=== PATIENT | female | born 1985 | race American Indian/Alaskan Native ===

== ENCOUNTER 2016-08-02 11:01 | Emergency (ER) | payer MEDICAID, OTHER ==
[2016-08-02] MEDS ORDERED: NACL 0.9% 1000 ML 1,000 ML IV ONE (14:50)
[2016-08-02] MEDS ORDERED: BENADRYL IV ONE (14:50)
[2016-08-02] MEDS ORDERED: REGLAN IV ONE (14:50)
--- NOTE | 2016-08-02 15:11 | Emergency Department Report ---
ED Headache HPI - General Chief Complaint: Headache Stated Complaint: HEADACHE X 3 DAYS Time Seen by Provider: 08/02/16 14:40 Source: patient, RN notes reviewed, old records Exam Limitations: no limitations - History of Present Illness Initial Comments: PT states she has hx of migraines since high school. PT states she started getting a headache 3 days ago, while at work, and states now it is migraine. No significant improvement with Tramadol. PT states today she has thrown up 4 times. PT states she has not eaten due to nausea so she had nothing to throw up. PT states her entire head now hurts and this feels like previous migraines. PT states she has finished her Coumadin and is currently not on any anticoagulation medication. PT states she had a PE last dec and the doctors do not know what caused it. Upon chart review, it appears pt had a tubal ligation the month prior. PT had normal MRI/MRA of head 04-04-16. Timing/Duration: constant (for three days) Quality: severe, constant, pressure, throbbing Head Injury Location: frontal, temporal, occipital, parietal Recent Head Trauma: no recent headache/trauma, frequent headaches Modifying Factors: improves with: medication. worse with: exposure to light Associated Symptoms: nausea/vomiting, vision changes (hurts to look at light). denies: facial pain, loss of consciousness, numbness in legs/feet, stiff neck Allergies/Adverse Reactions: Allergies No Known Allergies Allergy (Verified 08/02/16 12:20) Home Medications: Ambulatory Orders ALBUTEROL Inhaler [ProAir HFA Inhaler] 2 puff IH QID PRN 04/09/15 Famotidine [Pepcid] 20 mg PO BID #60 tablet 04/11/15 Polyethylene Glycol 3350 [Miralax 3350] 17 gm PO DAILY PRN #10 powd.pack Simvastatin [Zocor TAB] 20 mg PO QHS #30 tablet 04/11/15 Topiramate [Topamax] 50 mg PO Q12HR #60 tablet 04/11/15 ED Review of Systems ROS: Stated complaint: HEADACHE X 3 DAYS Other details as noted in HPI Comment: All other systems reviewed and negative Constitutional: denies: chills, fever Eyes: eye pain (photophobia ). denies: eye discharge Cardiovascular: denies: chest pain Gastrointestinal: abdominal pain (feels sore from vomiting ), nausea, vomiting Genitourinary: denies: dysuria Musculoskeletal: denies: back pain Neurological: headache. denies: weakness, numbness, paresthesias ED Past Medical Hx - Past Medical History Hx Hypertension: No Hx Heart Attack/AMI: No Hx Congestive Heart Failure: No Hx Diabetes: No Hx Pulmonary Embolism: Yes Hx Liver Disease: No Hx Renal Disease: No Hx Headaches / Migraines: Yes (migraines) Hx Seizures: No Hx Asthma: Yes Hx COPD: No Hx HIV: No - Surgical History Additional Surgical History: Polyps removed from rectal area. TUBAL LIGATION - Social History Smoking Status: Light Tobacco Smoker Substance Use Type: Alcohol, Marijuana - Medications Home Medications: Home Medications Medication Instructions Recorded Confirmed Last Taken Type ALBUTEROL Inhaler [ProAir HFA 2 puff IH QID PRN 04/09/15 04/09/15 11/11/14 History Inhaler] Famotidine [Pepcid] 20 mg PO BID #60 tablet 04/11/15 Unknown Rx Polyethylene Glycol 3350 [Miralax 17 gm PO DAILY PRN #10 powd.pack 04/11/15 Unknown Rx 3350] Simvastatin [Zocor TAB] 20 mg PO QHS #30 tablet 04/11/15 Unknown Rx Topiramate [Topamax] 50 mg PO Q12HR #60 tablet 04/11/15 Unknown Rx ED Physical Exam - General Limitations: No Limitations General appearance: alert, obese, other (laying still in dark room, with eyes cover, alert to verbal stimulation ) - Head Head exam: Present: atraumatic, normocephalic - Eye Eye exam: Present: normal appearance, PERRL, EOMI, other (photophobia ). Absent : conjunctival injection, nystagmus - ENT ENT exam: Present: normal exam, normal orophraynx, mucous membranes moist, normal external ear exam - Neck Neck exam: Present: normal inspection. Absent: tenderness - Respiratory Respiratory exam: Present: normal lung sounds bilaterally. Absent: respiratory distress - Cardiovascular Cardiovascular Exam: Present: regular rate, normal rhythm, normal heart sounds - GI/Abdominal GI/Abdominal exam: Present: soft, normal bowel sounds. Absent: tenderness - Extremities Exam Extremities exam: Present: normal inspection, full ROM. Absent: tenderness, pedal edema, calf tenderness - Back Exam Back exam: Present: normal inspection, full ROM. Absent: tenderness, CVA tenderness (R), CVA tenderness (L), paraspinal tenderness, vertebral tenderness - Neurological Exam Neurological exam: Present: alert, oriented X3, CN II-XII intact - Expanded Neurological Exam Expanded Patient oriented to: Present: person, place, time Speech: Present: fluid speech Sensory exam: Upper Extremity Light Touch: Normal, Lower Extremity Light Touch: Normal Motor strength exam: RUE: 5, LUE: 5, RLE: 5, LLE: 5 Best Eye Response (Proctor): (4) open spontaneously Best Motor Response (Vicike): (6) obeys commands Best Verbal Response (Vickie): (5) oriented Proctor Total: 15 - Psychiatric Psychiatric exam: Present: normal affect, normal mood - Skin Skin exam: Present: warm, dry, intact, normal color ED Course Vital Signs 08/02/16 08/02/16 12:15 15:51 Temperature 98.2 F 98.7 F Pulse Rate 65 65 Respiratory 17 18 Rate Blood Pressure 131/83 Blood Pressure 126/66 [Left] O2 Sat by Pulse 99 100 Oximetry - Reevaluation(s) Reevaluation #1: 08/02/16 15:21 PT aware of plan of care. PT has no questions at this time. Reevaluation #2: 08/02/16 15:49 PT rates pain 9/10. IVFs infusing Reevaluation #3: 08/02/16 16:37 PT states her headache has "gone away" - Pulse Oximetry Interpretation Digit-Finger Initial Pulse Oximetry Readin Actions Taken: none ED Medical Decision Making - Differential Diagnosis headache, migraine Critical Care Time: No Critical care attestation.: If time is entered above; I have spent that time in minutes in the direct care of this critically ill patient, excluding procedure time. ED Disposition Clinical Impression: Nausea Headache Qualifiers: Headache type: unspecified Headache chronicity pattern: acute headache Intractability: not intractable Qualified Code(s): R51 - Headache Disposition: DISCHARGED TO HOME OR SELFCARE Is pt being admited?: No Does the pt Need Aspirin: No Condition: Stable Instructions: Migraine Headache (ED), Acute Headache (ED) Referrals: ADRIANA BAIN MD [Primary Care Provider] - 3-5 Days Forms: Work/School Release Form(ED) Time of Disposition: 16:38
[2016-08-02] MEDS ORDERED: TORADOL IV ONE (15:49)
[2016-08-02 15:51] VITALS: BP 126/66
== END 2016-08-02 16:55 | disposition home or self-care (01) ==
LOC: ED 11:01
DX: G43.909 Migraine, unspecified, not intractable, without status migrainosus (principal); R11.0 Nausea; F12.90 Cannabis use, unspecified, uncomplicated; Z86.711 Personal history of pulmonary embolism; Z72.0 Tobacco use
CPT/HCPCS: 96361; 96374; 96375; 99282; J1200; J1885; J2765; J2930; J7030

== ENCOUNTER 2017-03-13 08:05 | Emergency (ER) | payer OTHER ==
[2017-03-13 09:57] LABS: Basophils % (Auto) 0.4 % (0.0-1.8); Eosinophils % (Auto) 1.7 % (0.0-4.3); Hematocrit 37.7 % (30.3-42.9); Hemoglobin 12.4 gm/dl (10.1-14.3); Mean Corpuscular HGB Conc 33 % (30-34); Mean Corpuscular Hemoglobin 26 pg (28-32); Mean Corpuscular Volume 80 fl (79-97); Platelet Count 346 K/mm3 (140-440); Red Blood Count 4.72 M/mm3 (3.65-5.03); Red Cell Distribution Width 14.2 % (13.2-15.2); White Blood Count 8.4 K/mm3 (4.5-11.0)
[2017-03-13 10:20] LABS: Alanine Aminotransferase 19 units/L (7-56); Albumin 3.7 g/dL (3.9-5); Albumin/Globulin Ratio 1.1 %; Alkaline Phosphatase 69 units/L (35-129); Anion Gap 17 mmol/L; BUN/Creatinine Ratio 12; Blood Urea Nitrogen 7 mg/dL (7-17); Calcium 8.5 mg/dL (8.4-10.2); Carbon Dioxide 21 mmol/L (22-30); Chloride 107.3 mmol/L (98-107); Glucose 94 mg/dL (65-100); Lipase 34 units/L (13-60); Sodium 141 mmol/L (137-145)
[2017-03-13 12:20] VITALS: BP 122/84
[2017-03-13] MEDS ORDERED: ZOFRAN ODT PO ONE (12:26)
--- NOTE | 2017-03-13 12:33 | Emergency Department Report ---
HPI - General Chief Complaint: Abdominal Pain Time Seen by Provider: 03/13/17 12:16 - HPI HPI: Room 2 ( 1 of 2) The patient is a 31-year-old female with a chief complaint of abdominal pain nausea vomiting diarrhea. The patient states her symptoms began 7 days ago with diffuse abdominal pain. The patient states 3 days ago she developed nausea and vomiting and then yesterday she developed diarrhea. Patient denies any history of fever. The patient states her abdomen feels though there is a "knot" inside it. Of note the patient presents with her younger son who has since developed nausea and vomiting. The patient states she has a headache that feels like her previous migraines but denies any other types of pain Location: Abdomen, head Duration: [See above] Quality: "Knot" Severity: Moderate Modifying factors: [see above] Context: [see above] Mode of transportation: Patient drove herself to the emergency department ED Past Medical Hx - Past Medical History Hx Pulmonary Embolism: Yes Hx Headaches / Migraines: Yes (migraines) Hx Asthma: Yes - Surgical History Additional Surgical History: Polyps removed from rectal area. TUBAL LIGATION - Family History Family history: no significant - Social History Smoking Status: Never Smoker Substance Use Type: None - Medications Home Medications: Home Medications Medication Instructions Recorded Confirmed Last Taken Type ALBUTEROL Inhaler [ProAir HFA 2 puff IH QID PRN 04/09/15 04/09/15 11/11/14 History Inhaler] Famotidine [Pepcid] 20 mg PO BID #60 tablet 04/11/15 Unknown Rx Polyethylene Glycol 3350 [Miralax 17 gm PO DAILY PRN #10 powd.pack 04/11/15 Unknown Rx 3350] Simvastatin [Zocor TAB] 20 mg PO QHS #30 tablet 04/11/15 Unknown Rx Topiramate [Topamax] 50 mg PO Q12HR #60 tablet 04/11/15 Unknown Rx Butalb/Acetamin/Caff 50-325-40 1 tab PO Q6HR PRN #12 tab 08/02/16 Unknown Rx [Fioricet] Ondansetron [Zofran ODT TAB] 4 mg PO Q8HR PRN #10 tab.rapdis 08/02/16 Unknown Rx Ciprofloxacin HCl [Ciprofloxacin 500 mg PO BID #3 day 10/06/16 Unknown Rx TAB] methylPREDNISolone [Medrol Dose 1 dose PO DAILY #1 pack 10/06/16 Unknown Rx Jakob] Ondansetron [Zofran ODT TAB] 8 mg PO Q8HR #20 tab.rapdis 03/13/17 Unknown Rx Promethazine [Phenergan] 25 mg NE Q6HR PRN #5 supp.rect 03/13/17 Unknown Rx traMADol [Ultram] 50 mg PO Q6HR PRN #14 tablet 03/13/17 Unknown Rx ED Review of Systems ROS: Stated complaint: ABDOMINAL PAIN, VOMITING, AND DIARRHEA Other details as noted in HPI Constitutional: denies: fever Eyes: denies: eye pain ENT: denies: throat pain Cardiovascular: denies: chest pain Gastrointestinal: abdominal pain, nausea, vomiting, diarrhea Genitourinary: denies: urgency Musculoskeletal: denies: back pain Neurological: headache Physical Exam - Physical Exam Vital Signs: Vital Signs 03/13/17 03/13/17 03/13/17 09:27 12:19 12:20 Temperature 98.9 F 98.4 F Pulse Rate 76 77 Respiratory 18 16 16 Rate Blood Pressure 130/79 Blood Pressure 122/84 [Left] O2 Sat by Pulse 98 100 100 Oximetry Physical Exam: GENERAL: The patient is well-developed well-nourished female lying on stretcher not appearing to be in acute distress. [] HEENT: Normocephalic. Atraumatic. Extraocular motions are intact. Patient has moist mucous membranes. NECK: Supple. Trachea midline CHEST/LUNGS: Clear to auscultation. There is no respiratory distress noted. HEART/CARDIOVASCULAR: Regular. There is no tachycardia. There is no gallop rub or murmur. ABDOMEN: Abdomen is soft, with diffuse discomfort to palpation but no rebound or guarding. Patient has normal bowel sounds. There is no abdominal distention. SKIN: There is no rash. There is no edema. There is no diaphoresis. NEURO: The patient is awake, alert, and oriented. The patient is cooperative. The patient has normal speech MUSCULOSKELETAL: There is no evidence of acute injury. ED Course Vital Signs 03/13/17 03/13/17 03/13/17 09:27 12:19 12:20 Temperature 98.9 F 98.4 F Pulse Rate 76 77 Respiratory 18 16 16 Rate Blood Pressure 130/79 Blood Pressure 122/84 [Left] O2 Sat by Pulse 98 100 100 Oximetry - Reevaluation(s) Reevaluation #1: 03/13/17 13:31 Patient tolerating po ED Medical Decision Making - Lab Data Result diagrams: 03/13/17 09:35 03/13/17 09:35 Laboratory Tests 03/13/17 03/13/17 03/13/17 09:35 09:35 09:35 WBC 8.4 RBC 4.72 Hgb 12.4 Hct 37.7 MCV 80 MCH 26 L MCHC 33 RDW 14.2 Plt Count 346 Lymph % (Auto) 24.6 Christian % (Auto) 7.1 Eos % (Auto) 1.7 Baso % (Auto) 0.4 Lymph # 2.1 Christian # 0.6 Eos # 0.1 Baso # 0.0 Seg Neutrophils % 66.2 Seg Neutrophils # 5.6 Sodium 141 Potassium 4.0 Chloride 107.3 H Carbon Dioxide 21 L Anion Gap 17 BUN 7 Creatinine 0.6 L Estimated GFR > 60 BUN/Creatinine Ratio 12 Glucose 94 Calcium 8.5 Total Bilirubin 0.30 AST 20 ALT 19 Alkaline Phosphatase 69 Total Protein 7.0 Albumin 3.7 L Albumin/Globulin Ratio 1.1 Lipase 34 HCG, Qual Negative - Differential Diagnosis gastroenteritis, gastritis Critical care attestation.: If time is entered above; I have spent that time in minutes in the direct care of this critically ill patient, excluding procedure time. ED Disposition Clinical Impression: Gastroenteritis, acute, Acute abdominal pain Disposition: - TO HOME OR SELFCARE Is pt being admited?: No Does the pt Need Aspirin: No Condition: Stable Instructions: Gastroenteritis (ED), Abdominal Pain (ED) Additional Instructions: Return to the emergency department immediately should you develop worsening symptoms, fever, inability to tolerate food or liquid or any other concerns. 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 Please follow-up with him for further evaluation) Time of Disposition: 13:31
== END 2017-03-13 13:45 | disposition home or self-care (01) ==
LOC: ED 08:05
DX: K52.9 Noninfective gastroenteritis and colitis, unspecified (principal); G43.909 Migraine, unspecified, not intractable, without status migrainosus
CPT/HCPCS: 36415; 80053; 83690; 84703; 85025; 99283; Q0162

== ENCOUNTER 2017-03-14 18:15 | Emergency (ER) | payer OTHER ==
[2017-03-14 18:53] LABS: Basophils % (Auto) 0.3 % (0.0-1.8); Eosinophils % (Auto) 2.1 % (0.0-4.3); Hematocrit 37.8 % (30.3-42.9); Hemoglobin 12.3 gm/dl (10.1-14.3); Mean Corpuscular HGB Conc 33 % (30-34); Mean Corpuscular Hemoglobin 26 pg (28-32); Mean Corpuscular Volume 81 fl (79-97); Platelet Count 360 K/mm3 (140-440); Red Blood Count 4.68 M/mm3 (3.65-5.03); Red Cell Distribution Width 14.5 % (13.2-15.2); White Blood Count 8.3 K/mm3 (4.5-11.0)
[2017-03-14 19:05] LABS: Anion Gap 19 mmol/L; BUN/Creatinine Ratio 9; Blood Urea Nitrogen 6 mg/dL (7-17); Calcium 9.4 mg/dL (8.4-10.2); Carbon Dioxide 23 mmol/L (22-30); Glucose 88 mg/dL (65-100); Potassium 4.4 mmol/L (3.6-5.0); Sodium 140 mmol/L (137-145)
[2017-03-14] MEDS ORDERED: MORPHINE IV ONE (21:53)
[2017-03-14] MEDS ORDERED: ZOFRAN IV ONE (21:53)
[2017-03-14] MEDS ORDERED: BENADRYL IV ONE (21:54)
--- NOTE | 2017-03-14 21:59 | Emergency Department Report ---
ED Chest Pain HPI - General Chief Complaint: Chest Pain Stated Complaint: SHARP C/P L SIDE NUMBNESS Time Seen by Provider: 03/14/17 21:46 Source: patient Mode of arrival: Ambulatory Limitations: No Limitations - History of Present Illness Initial Comments: Patient is 31 is all female history of pulmonary embolism last year. Patient presented with sudden onset of left chest pain, sharp in nature ,not radiating associated with shortness of breath. Patient stated that her symptoms is similar to when she had her PE last time. Patient stated that she finished one year off Lovenox. Patient denied any fever or cough. When questioned about her shrimp allergy patient stated that she does not think that she is allergic to shrimp that she it was the spice in the shrimp that cause her to swell. She stated that she had IV contrast last time for for her PE diagnosis. I will premedicate how with Solu-Medrol and Benadryl. Complaint: chest pain -: Sudden Onset: during rest Pain Location: left chest Pain Radiation: none Severity: moderate Severity scale (0 -10): 6 Quality: sharp Consistency: constant - Related Data Home Medications Medication Instructions Recorded Confirmed Last Taken ALBUTEROL Inhaler [ProAir HFA 2 puff IH QID PRN 04/09/15 04/09/15 11/11/14 Inhaler] Previous Rx's Medication Instructions Recorded Last Taken Type Famotidine [Pepcid] 20 mg PO BID #60 tablet 04/11/15 Unknown Rx Polyethylene Glycol 3350 [Miralax 17 gm PO DAILY PRN #10 powd.pack 04/11/15 Unknown Rx 3350] Simvastatin [Zocor TAB] 20 mg PO QHS #30 tablet 04/11/15 Unknown Rx Topiramate [Topamax] 50 mg PO Q12HR #60 tablet 04/11/15 Unknown Rx Butalb/Acetamin/Caff 50-325-40 1 tab PO Q6HR PRN #12 tab 08/02/16 Unknown Rx [Fioricet] Ondansetron [Zofran ODT TAB] 4 mg PO Q8HR PRN #10 tab.rapdis 08/02/16 Unknown Rx Ciprofloxacin HCl [Ciprofloxacin 500 mg PO BID #3 day 10/06/16 Unknown Rx TAB] methylPREDNISolone [Medrol Dose 1 dose PO DAILY #1 pack 10/06/16 Unknown Rx Jakob] Ondansetron [Zofran ODT TAB] 8 mg PO Q8HR #20 tab.rapdis 03/13/17 Unknown Rx Promethazine [Phenergan] 25 mg IN Q6HR PRN #5 supp.rect 03/13/17 Unknown Rx traMADol [Ultram] 50 mg PO Q6HR PRN #14 tablet 03/13/17 Unknown Rx Allergies Allergy/AdvReac Type Severity Reaction Status Date / Time peanut Allergy Swelling Verified 03/14/17 18:18 shrimp Allergy Swelling Verified 03/14/17 18:18 Heart Score - HEART Score History: Slightly suspicious EKG: Normal Age: < 45 Risk factors: 1-2 risk factors Troponin: < normal limit HEART Score: 1 - Critical Actions Critical Actions: 0-3 pts:0.9-1.7%risk of adverse cardiac event.Candidate for discharge ED Review of Systems ROS: Stated complaint: SHARP C/P L SIDE NUMBNESS Other details as noted in HPI Comment: All other systems reviewed and negative Constitutional: denies: chills, fever Respiratory: shortness of breath, SOB at rest. denies: cough, orthopnea, SOB with exertion, wheezing Cardiovascular: chest pain. denies: palpitations, dyspnea on exertion, orthopnea, edema, syncope, paroxysmal nocturnal dyspnea Gastrointestinal: denies: abdominal pain, nausea, vomiting, diarrhea, constipation, hematemesis, melena, hematochezia Musculoskeletal: denies: back pain Neurological: denies: headache, numbness, paresthesias ED Past Medical Hx - Past Medical History Hx Hypertension: No Hx Heart Attack/AMI: No Hx Congestive Heart Failure: No Hx Diabetes: No Hx Pulmonary Embolism: Yes Hx Liver Disease: No Hx Renal Disease: No Hx Headaches / Migraines: Yes (migraines) Hx Seizures: No Hx Asthma: Yes Hx COPD: No Hx HIV: No - Surgical History Additional Surgical History: Polyps removed from rectal area. TUBAL LIGATION - Social History Smoking Status: Never Smoker Substance Use Type: Alcohol - Medications Home Medications: Home Medications Medication Instructions Recorded Confirmed Last Taken Type ALBUTEROL Inhaler [ProAir HFA 2 puff IH QID PRN 04/09/15 04/09/15 11/11/14 History Inhaler] Famotidine [Pepcid] 20 mg PO BID #60 tablet 04/11/15 Unknown Rx Polyethylene Glycol 3350 [Miralax 17 gm PO DAILY PRN #10 powd.pack 04/11/15 Unknown Rx 3350] Simvastatin [Zocor TAB] 20 mg PO QHS #30 tablet 04/11/15 Unknown Rx Topiramate [Topamax] 50 mg PO Q12HR #60 tablet 04/11/15 Unknown Rx Butalb/Acetamin/Caff 50-325-40 1 tab PO Q6HR PRN #12 tab 08/02/16 Unknown Rx [Fioricet] Ondansetron [Zofran ODT TAB] 4 mg PO Q8HR PRN #10 tab.rapdis 08/02/16 Unknown Rx Ciprofloxacin HCl [Ciprofloxacin 500 mg PO BID #3 day 10/06/16 Unknown Rx TAB] methylPREDNISolone [Medrol Dose 1 dose PO DAILY #1 pack 10/06/16 Unknown Rx Jakob] Ondansetron [Zofran ODT TAB] 8 mg PO Q8HR #20 tab.rapdis 03/13/17 Unknown Rx Promethazine [Phenergan] 25 mg IN Q6HR PRN #5 supp.rect 03/13/17 Unknown Rx traMADol [Ultram] 50 mg PO Q6HR PRN #14 tablet 03/13/17 Unknown Rx ED Physical Exam - General Limitations: No Limitations General appearance: alert, in no apparent distress - Head Head exam: Present: atraumatic, normocephalic - Eye Eye exam: Present: normal appearance Pupils: Present: normal accommodation - ENT ENT exam: Present: normal exam, normal orophraynx, mucous membranes moist - Neck Neck exam: Present: normal inspection, full ROM. Absent: tenderness, meningismus, lymphadenopathy, thyromegaly - Respiratory Respiratory exam: Present: normal lung sounds bilaterally. Absent: respiratory distress, wheezes, rales, rhonchi, chest wall tenderness - Cardiovascular Cardiovascular Exam: Present: regular rate, normal rhythm, normal heart sounds - GI/Abdominal GI/Abdominal exam: Present: soft, normal bowel sounds. Absent: distended, tenderness, guarding, rebound, rigid, organomegaly, mass, bruit, pulsatile mass , hernia - Extremities Exam Extremities exam: Present: normal inspection, full ROM, normal capillary refill. Absent: calf tenderness - Back Exam Back exam: Present: normal inspection. Absent: CVA tenderness (R), CVA tenderness (L) - Neurological Exam Neurological exam: Present: alert, oriented X3, CN II-XII intact, normal gait - Skin Skin exam: Present: warm, intact, normal color. Absent: cyanosis ED Course Vital Signs 03/14/17 03/14/17 18:19 22:24 Temperature 98.2 F Pulse Rate 68 Respiratory 18 20 Rate Blood Pressure 124/81 O2 Sat by Pulse 98 Oximetry - Reevaluation(s) Reevaluation #1: 03/14/17 23:54 Patient remained stable in the ER no acute distress. DANIEL score - Daniel Score Age > 65: (0) No Aspirin use within the Past 7 Days: (0) No 3 or more CAD Risk Factors: (0) No 2 or more Angina events in past 24 hrs: (0) No Known CAD with more than 50% Stenosis: (0) No Elevated Cardiac Markers: (0) No ST Deviation Greater than 0.5mm: (0) No DANIEL Score: 0 ED Medical Decision Making - Lab Data Result diagrams: 03/14/17 18:35 03/14/17 18:35 - EKG Data -: EKG Interpreted by [place] EKG shows normal: sinus rhythm Rate: normal - EKG Data Interpretation: no acute changes - Radiology Data Radiology results: report reviewed Chest CTA showed no evidence of pulmonary embolism. Critical care attestation.: If time is entered above; I have spent that time in minutes in the direct care of this critically ill patient, excluding procedure time. ED Disposition Clinical Impression: Chest pain Disposition: DC-01 TO HOME OR SELFCARE Is pt being admited?: No Condition: Stable Instructions: Chest Pain (ED) Referrals: PRIMARY CARE, [Primary Care Provider] - 3-5 Days
[2017-03-14] MEDS ORDERED: NACL ONE (22:06)
[2017-03-14 22:37] LABS: INR 0.86 (0.87-1.13)
--- NOTE | 2017-03-14 23:31 | Cat Scan Report ---
FINAL REPORT PROCEDURE: CT ANGIO CHEST TECHNIQUE: Computerized tomographic angiography of the chest was performed during the IV injection of iodinated nonionic contrast including image processing. The image data was postprocessed using 2-dimensional multiplanar reformatted (MPR) and 3-dimensional (MIP and/or volume rendered) techniques. HISTORY: Chest pain with short of breath. History of pulmonary embolus. Evaluate pulmonary embolus. COMPARISON: No prior studies are available for comparison. FINDINGS: Pulmonary outflow tract, right and left main pulmonary arteries and their proximal branches: Clear, no filling defects seen to suggest pulmonary embolus. Pericardium: No evidence of pericardial effusion. Thoracic aorta: No evidence of aneurysmal dilatation or dissection. Coronary arteries: Are partially calcified indicating atherosclerotic disease. Mediastinum and hilar regions: Nonspecific subcentimeter lymph nodes are visualized. No pathologically enlarged lymph nodes or masses are identified. Lung Smith: There is minimal dependent atelectasis. The lungs otherwise are clear. Upper abdomen: No acute or focal abnormality is seeen. Other: No acute bony abnormalities are identified. IMPRESSION: No evidence of pulmonary embolus. Minimal dependent atelectasis visualized. Lungs otherwise are clear. No other abnormalities are seen.
[2017-03-15 00:33] VITALS: BP 114/65
== END 2017-03-15 00:34 | disposition home or self-care (01) ==
LOC: ED 18:15
DX: R06.02 Shortness of breath (principal); R07.9 Chest pain, unspecified; G43.909 Migraine, unspecified, not intractable, without status migrainosus
CPT/HCPCS: 36415; 71275; 80048; 84484; 85025; 85610; 85730; 93005; 93010; 96374; 96375; 99284; J1200; J2270; J2405; J2930; Q9967

== ENCOUNTER 2017-07-03 21:19 | Emergency (ER) | payer OTHER | END 2017-07-03 22:00 | disposition left against medical advice (07) | LOC: ED 21:19 | DX: M25.571 Pain in right ankle and joints of right foot (principal); Z53.21 Procedure and treatment not carried out due to patient leaving prior to being seen by health care provider ==

== ENCOUNTER 2018-12-07 08:10 | Emergency (ER) | payer OTHER ==
[2018-12-07 08:17] VITALS: BP 121/61
[2018-12-07 09:02] LABS: Basophils % (Auto) 0.5 % (0.0-1.8); Eosinophils # (Auto) 0.2 K/mm3 (0.0-0.4); Eosinophils % (Auto) 2.5 % (0.0-4.3); Hematocrit 35.6 % (30.3-42.9); Hemoglobin 11.5 gm/dl (10.1-14.3); Lymphocytes # (Auto) 2.1 K/mm3 (1.2-5.4); Mean Corpuscular HGB Conc 32 % (30-34); Mean Corpuscular Volume 77 fl (79-97); Monocytes # (Auto) 0.4 K/mm3 (0.0-0.8); Monocytes % (Auto) 6.9 % (0.0-7.3); Platelet Count 362 K/mm3 (140-440); Red Blood Count 4.63 M/mm3 (3.65-5.03); Red Cell Distribution Width 16.4 % (13.2-15.2)
[2018-12-07 09:26] LABS: Alanine Aminotransferase 20 units/L (7-56); Albumin 3.9 g/dL (3.9-5); BUN/Creatinine Ratio 9; Blood Urea Nitrogen 7 mg/dL (7-17); Calcium 9.4 mg/dL (8.4-10.2); Hemolysis Index 1
[2018-12-07 09:59] LABS: Bacteria,Urine 1+ /HPF (Negative); Bilirubin,Urine NEG (Negative); Blood,Urine LG (Negative); Color,Urine Yellow (Yellow); Mucus,Urine 2+ /HPF; Protein,Urine <15 mg/dL mg/dL (Negative)
[2018-12-07] MEDS ORDERED: DECADRON IV ONE (10:47)
[2018-12-07] MEDS ORDERED: REGLAN IV ONE (10:47)
[2018-12-07] MEDS ORDERED: TORADOL IV ONE (10:47)
[2018-12-07] MEDS ORDERED: BENADRYL IV ONE (10:47)
[2018-12-07] MEDS ORDERED: NACL 0.9% 1000 ML 1,000 ML IV ONE (10:47)
[2018-12-07 11:24] LABS: HCG Qualitative,Urine Negative (Negative)
--- NOTE | 2018-12-07 11:25 | Emergency Department Report ---
ED Abdominal Pain HPI - General Chief Complaint: Abdominal Pain Stated Complaint: BELLY BUTTON PAIN/NAUSEA Time Seen by Provider: 12/07/18 10:42 Source: patient Mode of arrival: Ambulatory Limitations: No Limitations - History of Present Illness Initial Comments: abd pain, vomiting x 2 weeks states pain in belly button area also c/o migraine, hx same, same sx Complaint: abdominal pain -: Gradual, week(s) (2) Location: periumbilical Radiation: none Migration to: no migration Severity: moderate Severity scale (0 -10): 5 Quality: aching Consistency: constant Improves With: nothing Worsens With: nothing - Related Data Home Medications Medication Instructions Recorded Confirmed Last Taken ALBUTEROL Inhaler (OR & NICU) 2 puff IH QID PRN 04/09/15 04/09/15 11/11/14 [ProAir HFA Inhaler] Previous Rx's Medication Instructions Recorded Last Taken Type Famotidine [Pepcid] 20 mg PO BID #60 tablet 04/11/15 Unknown Rx Polyethylene Glycol 3350 [Miralax 17 gm PO DAILY PRN #10 powd.pack 04/11/15 Unk nown Rx 3350] Simvastatin (Nf) [Zocor TAB] 20 mg PO QHS #30 tablet 04/11/15 Unknown Rx Topiramate [Topamax] 50 mg PO Q12HR #60 tablet 04/11/15 Unknown Rx Butalb/Acetamin/Caff 50-325-40 1 tab PO Q6HR PRN #12 tab 08/02/16 Unknown Rx [Fioricet 50-325-40] Ondansetron [Zofran ODT TAB] 4 mg PO Q8HR PRN #10 tab.rapdis 08/02/16 Unknown Rx Ciprofloxacin HCl [Ciprofloxacin 500 mg PO BID #3 day 10/06/16 Unknown Rx TAB] methylPREDNISolone [Medrol Dose 1 dose PO DAILY #1 pack 10/06/16 Unknown Rx Jakob] Ondansetron [Zofran ODT TAB] 8 mg PO Q8HR #20 tab.rapdis 03/13/17 Unknown Rx Promethazine [Phenergan] 25 mg FL Q6HR PRN #5 supp.rect 03/13/17 Unknown Rx traMADol [Ultram] 50 mg PO Q6HR PRN #14 tablet 03/13/17 Unknown Rx Ketorolac [Toradol] 10 mg PO Q6H PRN #20 tablet 03/14/17 Unknown Rx HYDROcodone/ACETAMINOPHEN [[place]ray 1 each PO Q8H PRN #7 tablet 03/27/18 Unknown Rx 5-325 Tablet] cefUROXime [Ceftin] 250 mg PO Q12H #14 tablet 03/27/18 Unknown Rx Hyoscyamine Subl [Levsin Sl 0.125 0.125 mg SL Q6HR PRN #12 tab 12/07/18 Unknown Rx TAB] Promethazine [Phenergan] 25 mg PO Q6HR PRN #12 tab 12/07/18 Unknown Rx cephALEXin [Keflex] 500 mg PO Q12HR #14 cap 12/07/18 Unknown Rx traMADol [Ultram 50 MG tab] 50 mg PO Q6HR PRN #12 tablet 12/07/18 Unknown Rx Allergies Allergy/AdvReac Type Severity Reaction Status Date / Time peanut Allergy Swelling Verified 03/14/17 18:18 shrimp Allergy Swelling Verified 03/14/17 18:18 ED Review of Systems ROS: Stated complaint: BELLY BUTTON PAIN/NAUSEA Other details as noted in HPI Comment: All other systems reviewed and negative Gastrointestinal: as per HPI Neurological: as per HPI ED Past Medical Hx - Past Medical History Previous Medical History?: Yes Hx Hypertension: No Hx Heart Attack/AMI: No Hx Congestive Heart Failure: No Hx Diabetes: No Hx Pulmonary Embolism: Yes Hx Liver Disease: No Hx Renal Disease: No Hx Headaches / Migraines: Yes (migraines) Hx Seizures: No Hx Asthma: Yes Hx COPD: No Hx HIV: No Additional medical history: Obesity - Surgical History Past Surgical History?: Yes Additional Surgical History: Polyps removed from rectal area. TUBAL LIGATION - Social History Smoking Status: Never Smoker Substance Use Type: Alcohol - Medications Home Medications: Home Medications Medication Instructions Recorded Confirmed Last Taken Type ALBUTEROL Inhaler (OR & NICU) 2 puff IH QID PRN 04/09/15 04/09/15 11/11/14 History [ProAir HFA Inhaler] Famotidine [Pepcid] 20 mg PO BID #60 tablet 04/11/15 Unknown Rx Polyethylene Glycol 3350 [Miralax 17 gm PO DAILY PRN #10 powd.pack 04/11/15 Unknown Rx 3350] Simvastatin (Nf) [Zocor TAB] 20 mg PO QHS #30 tablet 04/11/15 Unknown Rx Topiramate [Topamax] 50 mg PO Q12HR #60 tablet 04/11/15 Unknown Rx Butalb/Acetamin/Caff 50-325-40 1 tab PO Q6HR PRN #12 tab 08/02/16 Unknown Rx [Fioricet 50-325-40] Ondansetron [Zofran ODT TAB] 4 mg PO Q8HR PRN #10 tab.rapdis 08/02/16 Unknown Rx Ciprofloxacin HCl [Ciprofloxacin 500 mg PO BID #3 day 10/06/16 Unknown Rx TAB] methylPREDNISolone [Medrol Dose 1 dose PO DAILY #1 pack 10/06/16 Unknown Rx Jakob] Ondansetron [Zofran ODT TAB] 8 mg PO Q8HR #20 tab.rapdis 03/13/17 Unknown Rx Promethazine [Phenergan] 25 mg FL Q6HR PRN #5 supp.rect 03/13/17 Unknown Rx traMADol [Ultram] 50 mg PO Q6HR PRN #14 tablet 03/13/17 Unknown Rx Ketorolac [Toradol] 10 mg PO Q6H PRN #20 tablet 03/14/17 Unknown Rx HYDROcodone/ACETAMINOPHEN [[place]ray 1 each PO Q8H PRN #7 tablet 03/27/18 Unknown Rx 5-325 Tablet] cefUROXime [Ceftin] 250 mg PO Q12H #14 tablet 03/27/18 Unknown Rx Hyoscyamine Subl [Levsin Sl 0.125 0.125 mg SL Q6HR PRN #12 tab 12/07/18 Unknown Rx TAB] Promethazine [Phenergan] 25 mg PO Q6HR PRN #12 tab 12/07/18 Unknown Rx cephALEXin [Keflex] 500 mg PO Q12HR #14 cap 12/07/18 Unknown Rx traMADol [Ultram 50 MG tab] 50 mg PO Q6HR PRN #12 tablet 12/07/18 Unknown Rx ED Physical Exam - General Limitations: No Limitations General appearance: alert, in no apparent distress - Head Head exam: Present: atraumatic, normocephalic - Eye Eye exam: Present: normal appearance, PERRL, EOMI - ENT ENT exam: Present: normal exam, normal orophraynx, mucous membranes moist - Neck Neck exam: Present: normal inspection - Respiratory Respiratory exam: Present: normal lung sounds bilaterally. Absent: respiratory distress - Cardiovascular Cardiovascular Exam: Present: regular rate, normal rhythm. Absent: systolic murmur, diastolic murmur, rubs, gallop - GI/Abdominal GI/Abdominal exam: Present: soft, tenderness (RLQ, periumbilical ), normal bowel sounds. Absent: distended, guarding, rebound, rigid - Extremities Exam Extremities exam: Present: normal inspection - Back Exam Back exam: Present: normal inspection - Neurological Exam Neurological exam: Present: alert, oriented X3, CN II-XII intact, normal gait, reflexes normal. Absent: motor sensory deficit - Psychiatric Psychiatric exam: Present: normal affect, normal mood - Skin Skin exam: Present: warm, dry, intact, normal color. Absent: rash ED Course Vital Signs 12/07/18 08:14 Temperature 98.5 F Pulse Rate 72 Respiratory 18 Rate Blood Pressure 121/61 O2 Sat by Pulse 99 Oximetry ED Medical Decision Making - Lab Data Result diagrams: 12/07/18 08:40 12/07/18 08:40 - Radiology Data Radiology results: report reviewed, image reviewed fat containing umbilical hernia - Medical Decision Making abd pain x 2 weeks, ttp lower abd plan for labs, CT also has migraine, hx same, normal neuro, no concern for serious pathology given IVF, reglan, benadryl, toradol, decadron labs stable UA- UTI CT- fat containing umbilical hernia fu pcp/gen surg - Differential Diagnosis gastritis, uti, appy, migraine Critical care attestation.: If time is entered above; I have spent that time in minutes in the direct care of this critically ill patient, excluding procedure time. ED Disposition Clinical Impression: Umbilical hernia Qualifiers: Obstruction and gangrene presence: without obstruction or gangrene Qualified Code(s): K42.9 - Umbilical hernia without obstruction or gangrene UTI (urinary tract infection) Qualifiers: Urinary tract infection type: acute cystitis Hematuria presence: without hematuria Qualified Code(s): N30.00 - Acute cystitis without hematuria Migraine Qualifiers: Migraine type: unspecified Status migrainosus presence: without status migrainosus Intractability: not intractable Qualified Code(s): G43.909 - Migraine, unspecified, not intractable, without status migrainosus Disposition: - TO HOME OR SELFCARE Is pt being admited?: No Condition: Good Instructions: Abdominal Pain (ED) Prescriptions: cephALEXin [Keflex] 500 mg PO Q12HR #14 cap Hyoscyamine Subl [Levsin Sl 0.125 TAB] 0.125 mg SL Q6HR PRN #12 tab PRN Reason: abdominal pain Promethazine [Phenergan] 25 mg PO Q6HR PRN #12 tab PRN Reason: Nausea traMADol [Ultram 50 MG tab] 50 mg PO Q6HR PRN #12 tablet PRN Reason: Pain Referrals: PRIMARY MD LAITH [Primary Care Provider] - 3-5 Days VLADIMIR MIDDLETON MD [Staff Physician] - 3-5 Days Time of Disposition: 17:49
--- NOTE | 2018-12-07 17:37 | Cat Scan Report ---
CT ABDOMEN AND PELVIS WITHOUT CONTRAST INDICATION / CLINICAL INFORMATION: Diffuse abdominal pain for the past 2 weeks. TECHNIQUE: Axial CT images were obtained through the abdomen and pelvis without IV contrast. All CT scans at [facility] location are performed using CT dose reduction for ALARA by means of automated exposure control. COMPARISON: None available. FINDINGS: LOWER CHEST: No significant abnormality. LIVER: No significant abnormality. GALLBLADDER: No significant abnormality. BILE DUCTS: No significant abnormality. PANCREAS: No significant abnormality. SPLEEN: No significant abnormality. ADRENALS: No significant abnormality. RIGHT KIDNEY and URETER: No significant abnormality. LEFT KIDNEY and URETER: No significant abnormality. STOMACH and SMALL BOWEL: No significant abnormality. COLON: No significant abnormality. APPENDIX: No significant abnormality. PERITONEUM: No free fluid. No free air. No fluid collection. LYMPH NODES: No significant adenopathy. AORTA and ARTERIES: No significant abnormality. IVC and VEINS: No significant abnormality. URINARY BLADDER: No significant abnormality. REPRODUCTIVE ORGANS: No significant abnormality. ADDITIONAL FINDINGS: There is a moderate sized fat-containing periumbilical hernia.. SKELETAL SYSTEM: No significant abnormality. IMPRESSION: No acute intra-abdominal abnormality is identified within the limits of the noncontrast technique. Th ere is a fat-containing periumbilical hernia that is small in size. No evidence of appendicitis or julius wel obstruction. Signer Name: Catarino Alexis MD Signed: 12/07/2018 5:33 PM Workstation Name: [id number]
== END 2018-12-07 17:59 | disposition home or self-care (01) ==
LOC: ED 08:10
DX: K42.9 Umbilical hernia without obstruction or gangrene (principal); N39.0 Urinary tract infection, site not specified; G43.909 Migraine, unspecified, not intractable, without status migrainosus; J45.909 Unspecified asthma, uncomplicated; E66.9 Obesity, unspecified; Z68.42 Body mass index [BMI] 45.0-49.9, adult; Z91.010 Allergy to peanuts; Z91.013 Allergy to seafood; Z79.899 Other long term (current) drug therapy; Z98.51 Tubal ligation status; Z86.711 Personal history of pulmonary embolism
CPT/HCPCS: 36415; 74177; 80053; 81001; 81025; 85025; 87086; 96361; 96374; 96375; 99284; J1100; J1200; J1885; J2765; J7030; Q9967

== ENCOUNTER 2019-06-16 14:30 | Emergency (ER) | payer SELFPAY ==
--- NOTE | 2019-06-16 14:53 | Emergency Department Report ---
Blank Doc - Documentation Documentation: 34-year-old female that presents with n/v and abdominal pain. This initial assessment/diagnostic orders/clinical plan/treatment(s) is/are subject to change based on patient's health status, clinical progression and re- assessment by fellow clinical providers in the ED. Further treatment and workup at subsequent clinical providers discretion. Patient/guardians urged not to elope from the ED as their condition may be serious if not clinically assessed and managed. Initial orders include: 1- Patient sent to [facility] for further evaluation and treatment 2- labs 3- UA
[2019-06-16 15:27] LABS: Basophils # (Auto) 0.1 K/mm3 (0.0-0.1); Basophils % (Auto) 0.5 % (0.0-1.8); Eosinophils # (Auto) 0.1 K/mm3 (0.0-0.4); Eosinophils % (Auto) 0.5 % (0.0-4.3); Hematocrit 35.4 % (30.3-42.9); Hemoglobin 11.4 gm/dl (10.1-14.3); Lymphocytes % (Auto) 15.8 % (13.4-35.0); Mean Corpuscular HGB Conc 32 % (30-34); Mean Corpuscular Volume 78 fl (79-97); Monocytes # (Auto) 0.4 K/mm3 (0.0-0.8); Monocytes % (Auto) 3.6 % (0.0-7.3); Platelet Count 391 K/mm3 (140-440); Red Blood Count 4.57 M/mm3 (3.65-5.03); Red Cell Distribution Width 16.3 % (13.2-15.2)
[2019-06-16 15:49] LABS: Alanine Aminotransferase 24 units/L (7-56); Albumin 4.1 g/dL (3.9-5); BUN/Creatinine Ratio 9; Blood Urea Nitrogen 6 mg/dL (7-17); Calcium 9.7 mg/dL (8.4-10.2); Hemolysis Index 1
--- NOTE | 2019-06-16 17:30 | Emergency Department Report ---
<KAYLEE FAIRBANKS - Last Filed: 06/16/19 17:20> ED N/V/D HPI - General Chief complaint: Nausea/Vomiting/Diarrhea Stated complaint: CHEST PAIN Time Seen by Provider: 06/16/19 14:52 Source: patient Mode of arrival: Ambulatory Limitations: No Limitations - History of Present Illness Initial comments: Morbidly obese -[place] female with a past medical history of migraine headaches, asthma and history of PE about 3 to 4 years ago presents emerged department complaining of sudden onset ofRepeated nausea and vomiting which was followed by chest ache. The patient states that she has begin to notice some mild lightheadedness after all the vomiting episodes. She denies any diarrhea, dysuria, abdominal pain, fever, chills, sweats, hemoptysis, hematemesis, hematochezia. MD complaint: nausea, vomiting - Related Data Home Medications Medication Instructions Recorded Confirmed Last Taken Albuterol INH(or & Nicu Only) 2 puff IH QID PRN 04/09/15 04/09/15 11/11/14 [ProAir HFA Inhaler] Previous Rx's Medication Instructions Recorded Last Taken Type Famotidine [Pepcid] 20 mg PO BID #60 tablet 04/11/15 Unknown Rx Simvastatin (Nf) [Zocor TAB] 20 mg PO QHS #30 tablet 04/11/15 Unknown Rx Topiramate [Topamax] 50 mg PO Q12HR #60 tablet 04/11/15 Unknown Rx polyethylene glycoL 3350 [Miralax 17 gm PO DAILY PRN #10 powd.pack 04/11/15 Unknown Rx 3350] Butalb/Acetamin/Caff 50-325-40 1 tab PO Q6HR PRN #12 tab 08/02/16 Unknown Rx [Fioricet 50-325-40] Ondansetron [Zofran ODT TAB] 4 mg PO Q8HR PRN #10 tab.rapdis 08/02/16 Unknown Rx Ciprofloxacin HCl [Ciprofloxacin 500 mg PO BID #3 day 10/06/16 Unknown Rx TAB] methylPREDNISolone [Medrol Dose 1 dose PO DAILY #1 pack 10/06/16 Unknown Rx Jakob] Ondansetron [Zofran ODT TAB] 8 mg PO Q8HR #20 tab.rapdis 03/13/17 Unknown Rx Promethazine [Phenergan] [address] Q6HR PRN #5 supp.rect 03/13/17 Unknown Rx traMADoL [Ultram] 50 mg PO Q6HR PRN #14 tablet 03/13/17 Unknown Rx Ketorolac [Toradol] 10 mg PO Q6H PRN #20 tablet 03/14/17 Unknown Rx HYDROcodone/ACETAMINOPHEN [[place] 1 each PO Q8H PRN #7 tablet 03/27/18 Unknown Rx 5-325 Tablet] cefUROXime [Ceftin] 250 mg PO Q12H #14 tablet 03/27/18 Unknown Rx Hyoscyamine Subl [Levsin Sl 0.125 0.125 mg SL Q6HR PRN #12 tab 12/07/18 Unknown Rx TAB] Promethazine [Phenergan] 25 mg PO Q6HR PRN #12 tab 12/07/18 Unknown Rx cephALEXin [Keflex] 500 mg PO Q12HR #14 cap 12/07/18 Unknown Rx traMADoL [Ultram 50 MG tab] 50 mg PO Q6HR PRN #12 tablet 12/07/18 Unknown Rx Dicyclomine [Bentyl] 10 mg PO QID PRN #30 capsule 06/16/19 Unknown Rx Naproxen [Naprosyn] 500 mg PO BID PRN #30 tablet 06/16/19 Unknown Rx Ondansetron [Zofran Odt] 4 mg PO Q8HR PRN #12 tab.rapdis 06/16/19 Unknown Rx Allergies Allergy/AdvReac Type Severity Reaction Status Date / Time peanut Allergy Swelling Verified 06/16/19 14:33 shrimp Allergy Swelling Verified 06/16/19 14:33 ED Review of Systems Comment: All other systems reviewed and negative ED Past Medical Hx - Past Medical History Hx Hypertension: No Hx Heart Attack/AMI: No Hx Congestive Heart Failure: No Hx Diabetes: No Hx Pulmonary Embolism: Yes Hx Liver Disease: No Hx Renal Disease: No Hx Headaches / Migraines: Yes (migraines) Hx Seizures: No Hx Asthma: Yes Hx COPD: No Hx HIV: No Additional medical history: Obesity - Surgical History Additional Surgical History: Polyps removed from rectal area. TUBAL LIGATION - Social History Smoking Status: Never Smoker Substance Use Type: None - Medications Home Medications: Home Medications Medication Instructions Recorded Confirmed Last Taken Type Albuterol INH(or & Nicu Only) 2 puff IH QID PRN 04/09/15 04/09/15 11/11/14 History [ProAir HFA Inhaler] Famotidine [Pepcid] 20 mg PO BID #60 tablet 04/11/15 Unknown Rx Simvastatin (Nf) [Zocor TAB] 20 mg PO QHS #30 tablet 04/11/15 Unknown Rx Topiramate [Topamax] 50 mg PO Q12HR #60 tablet 04/11/15 Unknown Rx polyethylene glycoL 3350 [Miralax 17 gm PO DAILY PRN #10 powd.pack 04/11/15 Unknown Rx 3350] Butalb/Acetamin/Caff 50-325-40 1 tab PO Q6HR PRN #12 tab 08/02/16 Unknown Rx [Fioricet 50-325-40] Ondansetron [Zofran ODT TAB] 4 mg PO Q8HR PRN #10 tab.rapdis 08/02/16 Unknown Rx Ciprofloxacin HCl [Ciprofloxacin 500 mg PO BID #3 day 10/06/16 Unknown Rx TAB] methylPREDNISolone [Medrol Dose 1 dose PO DAILY #1 pack 10/06/16 Unknown Rx Jakob] Ondansetron [Zofran ODT TAB] 8 mg PO Q8HR #20 tab.rapdis 03/13/17 Unknown Rx Promethazine [Phenergan] [address] Q6HR PRN #5 supp.rect 03/13/17 Unknown Rx traMADoL [Ultram] 50 mg PO Q6HR PRN #14 tablet 03/13/17 Unknown Rx Ketorolac [Toradol] 10 mg PO Q6H PRN #20 tablet 03/14/17 Unknown Rx HYDROcodone/ACETAMINOPHEN [[place] 1 each PO Q8H PRN #7 tablet 03/27/18 Unknown Rx 5-325 Tablet] cefUROXime [Ceftin] 250 mg PO Q12H #14 tablet 03/27/18 Unknown Rx Hyoscyamine Subl [Levsin Sl 0.125 0.125 mg SL Q6HR PRN #12 tab 12/07/18 Unknown Rx TAB] Promethazine [Phenergan] 25 mg PO Q6HR PRN #12 tab 12/07/18 Unknown Rx cephALEXin [Keflex] 500 mg PO Q12HR #14 cap 12/07/18 Unknown Rx traMADoL [Ultram 50 MG tab] 50 mg PO Q6HR PRN #12 tablet 12/07/18 Unknown Rx Dicyclomine [Bentyl] 10 mg PO QID PRN #30 capsule 06/16/19 Unknown Rx Naproxen [Naprosyn] 500 mg PO BID PRN #30 tablet 06/16/19 Unknown Rx Ondansetron [Zofran Odt] 4 mg PO Q8HR PRN #12 tab.rapdis 06/16/19 Unknown Rx ED Physical Exam - General Limitations: No Limitations General appearance: alert, in no apparent distress - Head Head exam: Present: atraumatic, normocephalic - Eye Eye exam: Present: normal appearance, PERRL, EOMI Pupils: Present: normal accommodation - ENT ENT exam: Present: normal exam, mucous membranes moist - Neck Neck exam: Present: normal inspection - Respiratory Respiratory exam: Present: normal lung sounds bilaterally. Absent: respiratory distress, wheezes, rales, chest wall tenderness - Cardiovascular Cardiovascular Exam: Present: regular rate, normal rhythm. Absent: systolic murmur, diastolic murmur, rubs, gallop - GI/Abdominal GI/Abdominal exam: Present: soft, normal bowel sounds. Absent: distended, tenderness, guarding, hyperactive bowel sounds, hypoactive bowel sounds, organomegaly, mass - Extremities Exam Extremities exam: Present: normal inspection, normal capillary refill - Back Exam Back exam: Present: normal inspection. Absent: CVA tenderness (R), CVA tenderness (L) - Neurological Exam Neurological exam: Present: alert, oriented X3, CN II-XII intact - Psychiatric Psychiatric exam: Present: normal affect, normal mood - Skin Skin exam: Present: warm, dry, intact, normal color. Absent: rash ED Medical Decision Making - Lab Data Result diagrams: 06/16/19 15:16 06/16/19 15:16 ED Disposition Clinical Impression: Nausea & vomiting Qualifiers: Vomiting type: unspecified Vomiting Intractability: non-intractable Qualified Code(s): R11.2 - Nausea with vomiting, unspecified Chest pain Qualifiers: Chest pain type: unspecified Qualified Code(s): R07.9 - Chest pain, unspecified Disposition: DC- TO HOME OR SELFCARE Condition: Stable Instructions: Chest Pain (ED), Acute Nausea and Vomiting (ED) Additional Instructions: return to ed if symptoms worsen Prescriptions: Dicyclomine [Bentyl] 10 mg PO QID PRN #30 capsule PRN Reason: abdominal spasm Naproxen [Naprosyn] 500 mg PO BID PRN #30 tablet PRN Reason: pain Ondansetron [Zofran Odt] 4 mg PO Q8HR PRN #12 tab.rapdis PRN Reason: Nausea And Vomiting Referrals: ADRIANA BAIN MD [Primary Care Provider] - 3-5 Days Forms: Work/School Release Form(ED) <OZZIESAGRARIO [employer] - Last Filed: 06/16/19 22:00> ED Review of Systems ROS: Stated complaint: CHEST PAIN Other details as noted in HPI ED Course Vital Signs 06/16/19 06/16/19 14:52 17:57 Temperature 98.3 F Pulse Rate 77 69 Respiratory 20 18 Rate Blood Pressure 142/84 Blood Pressure 143/75 [Right] O2 Sat by Pulse 99 100 Oximetry ED Medical Decision Making - Lab Data Result diagrams: 06/16/19 15:16 06/16/19 15:16 - EKG Data EKG shows normal: sinus rhythm, axis, intervals, QRS complexes, ST-T waves Rate: normal - EKG Data When compared to previous EKG there are: previous EKG unavailable Interpretation: normal EKG (NSR No ST Elevated OH, ekg interp by ed attending. ) - Radiology Data Radiology results: report reviewed, image reviewed Findings Reporting MD: Bhaskar Wisdom Dictation Time: June 16, 2019 19:59 Director Agency [employer] Strategic Partnerships: Not available Dance Historian Date: CTA CHEST WITH CONTRAST INDICATION / CLINICAL INFORMATION: Chest pain and elevated d-dimer. TECHNIQUE: Axial CT images were obtained through the chest after injection of 100 MLO Omnipaque 350 IV contrast. 3 plane MIP and/or 3D reconstructions were produced. All CT scans at this location are performed using CT dose reduction for ALARA by means of automated exposure control. COMPARISON: CT dated 03/14/17 FINDINGS: PULMONARY ARTERIES: No pulmonary emboli. THORACIC AORTA: No significant abnormality. HEART: Upper normal size and stable. CORONARY ARTERIES: No significant calcification. MEDIASTINUM / NADIR: No significant abnormality. PLEURA: No pleural effusion. No pneumothorax. LUNGS: No acute air space or interstitial disease. ADDITIONAL FINDINGS: None. UPPER ABDOMEN: No acute findings. SKELETAL STRUCTURES: No significant osseous abnormality. IMPRESSION: 1. No CT evidence for pulmonary embolism. 2. No acute findings. Findings Reporting MD: Chadd Dueñas Dictation Time: June 16, 2019 17:08 Director Agency & Strategic Partnerships: Not available Dance Historian Date: CHEST 2 VIEWS INDICATION: cough and chest ache. COMPARISON: 04/11/2014 FINDINGS: Support devices: None. Heart: Within normal limits. Lungs/pleura: No acute air space or interstitial d isease. No pneumothorax. Additional findings: None. IMPRESSION: 1. No acute findings. - Medical Decision Making Patient advised symptoms are resolved no nausea vomiting at this time tolerating p.o. intake. CTA is normal no evidence of PE, pneumonia, or upper airway disease. Chest x-ray is normal no infiltrate no opacities. Symptoms are improved. Plan DC to home with prescription for Zofran as needed ,Bentyl and naproxen patient will follow-up with PCP in 2 to 3 days. And to return to ED should symptoms worsen patient verbalized agreement and understanding with discharge plan. Patient DC'd home in stable condition at this time. Critical care attestation.: If time is entered above; I have spent that time in minutes in the direct care of this critically ill patient, excluding procedure time. ED Disposition Is pt being admited?: No Does the pt Need Aspirin: No Time of Disposition: 21:57
[2019-06-16] MEDS ORDERED: ONDANSETRON 4 MG ODT TAB PO STA (17:41)
[2019-06-16 17:59] VITALS: BP 143/75
--- NOTE | 2019-06-16 18:13 | XRay Report ---
CHEST 2 VIEWS INDICATION: cough and chest ache. COMPARISON: 04/11/2014 FINDINGS: Support devices: None. Heart: Within normal limits. Lungs/pleura: No acute air space or interstitial disease. No pneumothorax. Additional findings: None. IMPRESSION: 1. No acute findings. Signer Name: Chadd Dueñas MD Signed: 06/16/2019 6:08 PM Workstation Name: [id number]
--- NOTE | 2019-06-16 21:04 | Cat Scan Report ---
CTA CHEST WITH CONTRAST INDICATION / CLINICAL INFORMATION: Chest pain and elevated d-dimer. TECHNIQUE: Axial CT images were obtained through the chest after injection of 100 MLO Omnipaque 350 IV contrast. 3 plane MIP and/or 3D reconstructions were produced. All CT scans at this location are performed usi ng CT dose reduction for [place] by means of automated exposure control. COMPARISON: CT dated 03/14/17 FINDINGS: PULMONARY ARTERIES: No pulmonary emboli. THORACIC AORTA: No significant abnormality. HEART: Upper normal size and stable. CORONARY ARTERIES: No significant calcification. MEDIASTINUM / NADIR: No significant abnormality. PLEURA: No pleural effusion. No pneumothorax. LUNGS: No acute air space or interstitial disease. ADDITIONAL FINDINGS: None. UPPER ABDOMEN: No acute findings. SKELETAL STRUCTURES: No significant osseous abnormality. IMPRESSION: 1. No CT evidence for pulmonary embolism. 2. No acute findings. Signer Name: Bhaskar Wisdom MD Signed: 06/16/2019 8:59 PM Workstation Name: [id number]
[2019-06-16 22:07] LABS: Bilirubin,Urine NEG (Negative); Blood,Urine LG (Negative); Color,Urine Red (Yellow); Urobilinogen,Urine < 2.0 mg/dL (<2.0)
[2019-06-16 22:10] LABS: RBC,Urine > 182.0 /HPF (0.0-6.0)
== END 2019-06-16 22:12 | disposition home or self-care (01) ==
LOC: ED 14:30
DX: R11.2 Nausea with vomiting, unspecified (principal); R07.89 Other chest pain; G43.909 Migraine, unspecified, not intractable, without status migrainosus; J45.909 Unspecified asthma, uncomplicated; E66.9 Obesity, unspecified; Z79.899 Other long term (current) drug therapy; Z91.010 Allergy to peanuts; Z88.8 Allergy status to other drugs, medicaments and biological substances
CPT/HCPCS: 36415; 71046; 71275; 80053; 81001; 83690; 84703; 85025; 85379; 87086; 93005; 93010; 99284; Q9967; Q0162